=== PATIENT | female | born 1960 ===

== ENCOUNTER 2024-12-14 06:24 | Day surgery (SDC) | payer BC, SELFPAY | END 2024-12-14 14:17 | disposition home or self-care (01) | LOC: GI 06:24 | PROVIDERS: ATTENDING PHYSICIAN Internal Medicine | DX: Z12.11 Encounter for screening for malignant neoplasm of colon (principal); Q43.8 Other specified congenital malformations of intestine | CPT/HCPCS: G0121 ==